=== PATIENT | female | born 1995 | race Hispanic/Latino ===

== ENCOUNTER 2020-11-29 08:04 | Emergency (ER) | payer OTHER ==
[~2020-11-29] VITALS: Ht 157.5 cm; Wt 58.4 kg
[2020-11-29 08:16] VITALS: BP 139/69
[2020-11-29] MEDS ORDERED: BENZONATATE 100 MG CAP PO ONE (08:30)
[2020-11-29] MEDS ORDERED: ACETAMINOPHEN 500 MG TAB PO ONE (08:30)
[2020-11-29 08:47] VITALS: O2SAT 97
[2020-11-29] MEDS ORDERED: TESS100C PO (09:07)
== END 2020-11-29 09:27 | disposition home or self-care (01) ==
LOC: M ED 08:04
DX: U07.1 COVID-19 (principal)